=== PATIENT | male | born 1995 ===

== ENCOUNTER 2019-12-06 23:53 | Emergency (ER) | payer SELFPAY ==
[2019-12-07] MEDS ORDERED: Proparacaine 0.5% Opth 15 ML BOT ONE (00:33)
[2019-12-07] MEDS ORDERED: Fluorescein Opthalmic Strip ONE (00:33)
== END 2019-12-07 00:46 | disposition home or self-care (01) ==
LOC: ERS 23:53
DX: H10.9 Unspecified conjunctivitis (principal)
CPT/HCPCS: 99283

== ENCOUNTER 2020-03-29 21:04 | Emergency (ER) | payer BC, OTHER ==
[2020-03-29] MEDS ORDERED: Dexamethasone 10 MG/ML VIAL ONE (21:57)
--- NOTE | 2020-03-29 22:24 | RAD ---
Chest AP view INDICATION: Cough and shortness of breath COMPARISON: None FINDINGS: Lungs: Hyperinflated but clear Cardiac silhouette: The cardiomediastinal silhouette appears within normal limits. Pulmonary vasculature: Normal Pleural spaces: No pleural effusion or pneumothorax is demonstrated. Upper abdomen: No abnormality seen. Osseous structures: No acute osseous abnormality. Additional findings: None. IMPRESSION: Hyperinflation. No definite acute cardiac pulmonary abnormality.
[2020-03-31 15:04] LABS: SARS-CoV-2 MS2 Positive; SARS-CoV-2 N Gene Negative; SARS-CoV-2 S Gene Negative; SARS-CoV-2 orf1ab Negative
== END 2020-03-30 00:06 | disposition home or self-care (01) ==
LOC: ERS 21:04
DX: R06.00 Dyspnea, unspecified (principal); Z20.828 Contact with and (suspected) exposure to other viral communicable diseases
CPT/HCPCS: 71045; 87635; J1100; U0003